=== PATIENT | male | born 1995 | race Two or more races ===

== ENCOUNTER 2018-02-07 23:02 | Emergency (ER) | payer MEDICAID ==
[~2018-02-07] VITALS: Ht 180.3 cm; Wt 61.7 kg
--- NOTE | 2018-02-07 23:02 | NUR ---
MARQUITA [address] ON [address] FOR EOTH. ABRASIONS NOTED TO LEFT FACE. EYE/ORBITAL PAIN. VSS AND WILL CONTINUE TO MONITOR FRO ANY CHANGES.
--- NOTE | 2018-02-07 23:10 | NUR ---
CERVICAL COLLAR PLACED
[2018-02-07] MEDS ORDERED: ONDANSETRON HCL/PF 4 MG/2 ML VIAL ONE (23:37)
[2018-02-08] MEDS ORDERED: ONDANSETRON HCL/PF 4 MG/2 ML VIAL IM ONE ×2 (01:30)
[2018-02-08] MEDS ORDERED: ONDANSETRON HCL/PF 4 MG/2 ML VIAL ONE (01:51)
--- NOTE | 2018-02-08 07:30 | NUR ---
RECEIVED REPORT FOR [facility].
[2018-02-08 07:59] VITALS: BP 120/61
--- NOTE | 2018-02-08 08:00 | NUR ---
Patient discharged to home in stable condition. Written and verbal after care instructions given. Patient verbalizes understanding of instruction.
== END 2018-02-08 07:59 | disposition home or self-care (01) ==
LOC: EDBD 23:05 → ER 23:05
DX: S00.31XA Abrasion of nose, initial encounter (principal); F10.129 Alcohol abuse with intoxication, unspecified; R41.82 Altered mental status, unspecified; X58.XXXA Exposure to other specified factors, initial encounter; Y93.89 Activity, other specified; Y92.89 Other specified places as the place of occurrence of the external cause; Y99.8 Other external cause status
CPT/HCPCS: 70450-TC; 70486-TC; 72125-TC; 82962-TC; A4606; J2405; L0172; Z7610